=== PATIENT | female | born 1995 | race Caucasian/White ===

== ENCOUNTER 2022-01-07 19:04 | Emergency (ER) | payer OTHER ==
[~2022-01-07] VITALS: Ht 167.6 cm; Wt 82.0 kg
[2022-01-07 23:24] LABS: HEMATOCRIT. 42.3 % (36.0-48.0); HEMOGLOBIN. 14.3 g/dL (12.0-16.0); MEAN CORPUSCULAR HEMOGLOBIN 32.5 pg (28.0-32.0); MEAN CORPUSCULAR VOLUME 96.2 fL (81.0-99.0); MEAN PLATELET VOLUME 8.8 fl (7.4-10.4); PLATELET 350 x1000/uL (130-400); RED CELL DISTRIBUTION WIDTH 12.7 % (11.6-14.6)
[2022-01-07 23:38] LABS: CLARITY URINE CLEAR (CLEAR); COLOR URINE YELLOW (YELLOW); KETONES URINE TRACE (NEGATIVE); LEUKOCYTE ESTERASE URINE 1+ (NEGATIVE); NITRITE URINE NEGATIVE (NEGATIVE); OCCULT BLOOD URINE NEGATIVE (NEGATIVE); PH URINE >=9.0 (4.5-8.0); PROTEIN URINE 1+ (NEGATIVE); SPECIFIC GRAVITY URINE 1.028 (1.005-1.030)
[2022-01-07 23:39] LABS: CHLORIDE 102 mEq/L (98-107)
[2022-01-08] MEDS ORDERED: KETOROLAC 60MG/2ML VIAL IM ONE (01:00)
[2022-01-08] MEDS ORDERED: ONDANSETRON 4MG ODT PO ONE (02:00)
[2022-01-08] MEDS ORDERED: NAPR-681 MT (02:29)
[2022-01-08] MEDS ORDERED: LIDO1ADH23 TP (02:29)
[2022-01-08 02:35] VITALS: BP 101/78
[2022-01-08 05:07] LABS: PLATELET ESTIMATE NORMAL
== END 2022-01-08 02:36 | disposition home or self-care (01) ==
LOC: ER 19:04
DX: J02.9 Acute pharyngitis, unspecified (principal); M94.0 Chondrocostal junction syndrome [Tietze]; M79.18 Myalgia, other site; Z20.822 Contact with and (suspected) exposure to COVID-19
CPT/HCPCS: 36415; 71045; 80048; 81003; 81025; 85025; 87070; 87426; 87430; 87804; 93005; 96372; 99284; C9803; J1885; Q0162